=== PATIENT | female | born 1985 | race Caucasian/White ===

== ENCOUNTER 2016-10-09 09:47 | Emergency (ER) | payer OTHER ==
[2016-10-09 10:27] VITALS: BP 127/82; PULSE 80; RESP 20; TEMP 98; O2SAT 98
--- NOTE | 2016-10-09 14:03 | UCPHY ---
H & P Patient Type: Established Chief Complaint Nursing Narrative: pt reports abd pain with nausea and vomiting "for two years but worse over the past five days." pt states "I can't eat, I know it's my gallbladder and I want a HIDA Scan." MD in room with RN throughout triage and initial evaluation. Pt unwilling to cooperate with complete triage assessment. Time Seen by Provider: 10/09/16 09:54 HPI/ROS: Chief complaint: Nausea, diarrhea, palpitations HPI: 30-year-old female is presenting complaining of nausea and not able to keep anything down. Patient states that this has been going on for 2 years but has been worse the last week or so. Is also complaining some palpitations some subjective fevers or chills some nausea and vomiting and some occasional loose stools. Patient is a vague historian when I asked for clarification on how long her symptoms have been happening she asked me if I had not been listening. She states she has seen her physician for this and had multiple lab tests in the past. She is scheduled to see a product applications engineer in 3 days but does not want wait to the weekend. She is presenting now stating basically that she wants a HIDA scan performed. She is unable to really describe what is new today. Initially was very pleasant but has been when I been asking her questions and clarification of her symptoms became increasingly irritated. ROS: Patient is not answering all questions for review of systems and is acting somewhat annoyed and belligerent Past medical history: Chronic nausea and vomiting Medications: None Allergies: None Social history: Nonsmoker, denies alcohol, does states she uses daily marijuana Physical exam: Gen: Awake, Alert, initially smiling and pleasant and then became increasingly agitated HEENT: Nose: no rhinorrhea Eyes: PERRLA, EOMI Mouth: Moist mucosa Neck: Supple, no JVD Chest: nontender, lungs clear to auscultation Heart: S1, S2 normal, no murmur Abd: Soft, non-tender, no guarding Back: no CVA tenderness, no midline tenderness Ext: no edema, non-tender Skin: no rash Neuro: CN II-XII intact, Sensation grossly intact, Strength 5/5 in bilateral upper and lower extremities - Personal History LMP (Females 10-55): Unknown Current Tetanus/Diphtheria Vaccine: Unsure Current Tetanus Diphtheria and Acellular Pertussis (TDAP): Unsure - Medical/Surgical History Hx Asthma: No Hx Chronic Respiratory Disease: No Hx Diabetes: No Hx Cardiac Disease: No Hx Renal Disease: No Hx Cirrhosis: No Hx Alcoholism: No Hx HIV/AIDS: No Hx Splenectomy or Spleen Trauma: No Other PMH: anxiety. tonsilectomy - Family History Significant Family History: No pertinent family hx - Social History Smoking Status: Smoker current status UNK Constitutional: Initial Vital Signs Temperature (C) 36.6 C 10/09/16 09:52 Heart Rate 80 10/09/16 09:52 Respiratory Rate 20 10/09/16 09:52 Blood Pressure 127/82 H 10/09/16 09:52 O2 Sat (%) 98 10/09/16 09:52 O2 Delivery Mode Room Air Allergies/Adverse Reactions: No Known Allergies Allergy (Verified 10/09/16 11:08) Home Medications: Medication Instructions Recorded Hydrocodone/Acetaminophen [[place] 1 - 2 tab PO Q6H PRN #14 tab 10/09/16 5/325 (*)] Lexapro 10/09/16 Ondansetron Odt [Zofran Odt 4 mg 4 mg PO Q4 PRN #6 tab 10/09/16 (*)] Medical Decision Making ED Course/Re-evaluation: 30-year-old female presenting with a variety of complaints including abdominal pain nausea vomiting and some diarrhea. Is very difficult to ascertain a history as she was not answering my questions and I asked for clarification and she was not presenting her symptoms in a chronologic time line. When asked for clarification she became agitated and irritated and asked if I not been listening. I explained to her that I was having some difficulty ascertaining the development of her symptoms. I then examined the patient which revealed a soft nontender abdomen and no acute findings. After examining the patient I did discuss with her that I wanted to place an IV to give her some fluids some antiemetics and to check some blood work. I also discussed with her that her marijuana use although not necessarily the primary cause might be contributing to her symptoms. At this point she became increasingly agitated and told me that she felt that I did not like women and she requested a female provider. I explained to her that I was the only physician present. She then demanded to have a HIDA scan performed. I explained to her that as an urgent care we do not have a HIDA scan available to us at this time. I did continue to offer her typical IV medications IV fluids and laboratory evaluations. The patient then became angry stood up and grabbed her clothes walking of the urgent care with her gown on stating that if we would not help her and she would go elsewhere. I again explained to her that would be happy to give her any treatment of to treat her symptoms but she indicated refuses this by leaving the department. This entire patient interaction took place in the presence of the nurse, Kyung Costa. I was never alone with the patient. Departure - Departure Disposition: Against Medical Advice Clinical Impression: Nausea & vomiting Condition: Good Referrals: Ml Jose PA [Primary Care Provider] - As per Instructions - PQRS PQRS Measurement: NA
== END 2016-10-09 10:20 | disposition left against medical advice (07) ==
LOC: CED 09:47
DX: R11.2 Nausea with vomiting, unspecified (principal); F12.10 Cannabis abuse, uncomplicated

== ENCOUNTER 2016-10-09 11:03 | Emergency (ER) | payer OTHER ==
[2016-10-09] MEDS ORDERED: NS 1,000 ML IV ONE (11:13)
[2016-10-09] MEDS ORDERED: ONDANSETRON 4 MG/2 ML VIAL IVP ONE (11:13)
[2016-10-09 11:29] VITALS: O2SAT 97
[2016-10-09] MEDS ORDERED: HYDROmorphONE/DILAUDID 1 MG/ML SYR IVP ONE (11:44)
[2016-10-09 11:50] LABS: % IMMATURE GRANULYOCYTES 0.3 % (0.0-1.1); ABSOLUTE IMMATURE GRANULOCYTES 0.03 10^3/uL (0.00-0.10); ADD DIFF? NO; ADD MORPH? NO; ADD SCAN? NO; ATYPICAL LYMPHOCYTE FLAG 50 (0-99); FRAGMENT RBC FLAG 0 (0-99); HEMATOCRIT 40.2 % (38.0-47.0); HEMOGLOBIN 14.3 g/dL (12.6-16.3); LEFT SHIFT FLG 0 (0-99); LIPEMIA HEMOLYSIS FLAG 90 (0-99); MEAN CELL HEMOGLOBIN 29.9 pg (27.9-34.1); MEAN CELL HEMOGLOBIN CONCENTR. 35.6 g/dL (32.4-36.7); MEAN CELL VOLUME 83.9 fL (81.5-99.8); MEAN PLATELET VOLUME 9.9 fL (8.7-11.7); PLATELET CLUMPS FLAG 0 (0-99); PLATELET COUNT 202 10^3/uL (150-400); RED BLOOD CELL COUNT 4.79 10^6/uL (4.18-5.33); RED CELL DISTRIBUTION WIDTH 12.2 % (11.5-15.2)
--- NOTE | 2016-10-09 11:50 | EDPHY ---
H & P Stated Complaint: fever/epigastric pain nausea/v for 8 days(see note from [facility]) Time Seen by Provider: 10/09/16 11:45 HPI/ROS: HPI: 22-year-old female presents to emergency department with chief concern nausea, vomiting, fever, abdominal discomfort. Symptoms onset suddenly at 0 300 with sensation of her heart pounding in her chest associated with hot and cold spells, and emesis. Reports 5 to 8/10 sharp/stabbing pain in her upper epigastric and right upper quadrant, as well as 5/10 anterior chest pressure. Reports fever 101.8 6 days ago as well as burning urination in the past 5-6 days. Reports intermittent emesis x1 year. Denies dizziness, headache, chills , myalgias, shortness of breath, hematemesis, diarrhea, rash. Has a history of IBS. Has a history of anxiety for which she takes lorazepam. Family history significant for gallbladder disease. Primary care provider Dr. Shala Jose. 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 ROS:10 point review of systems is negative other than as stated in HPI Source: Patient Exam Limitations: No limitations - Personal History LMP (Females 10-55): 8-14 Days Ago Current Tetanus/Diphtheria Vaccine: Unsure - Medical/Surgical History Hx Asthma: No Hx Chronic Respiratory Disease: No Hx Diabetes: No Hx Cardiac Disease: No Hx Renal Disease: No Hx Cirrhosis: No Hx Alcoholism: No Hx HIV/AIDS: No Hx Splenectomy or Spleen Trauma: No Other PMH: anxiety. tonsilectomy - Family History Significant Family History: Other (Gallbladder disease, heart disease) - Social History Smoking Status: Never smoked Alcohol Use: Rarely Drug Use: Marijuana Additional Social History: [employer] engineering student - Physical Exam Exam: Vital signs stable, reviewed by me General: Awake, alert, calm, cooperative. No acute distress. Head: Normalocephalic. Atraumatic. EENT: PERRLA. EOMI. No pallor or injection. Anicteric. No nystagmus. No injection. TMs intact bilaterally with normal landmarks. No rhinnorhea, nasal passages clear. Oropharynx without redness, exudates, or lesions. Tonsils 2+ bilaterally, no exudates. Neck: Supple, nontender. No lymphadenopathy. Full range of motion. No meningismus. Respiratory: Breathing unlabored. Breath sounds equal bilaterally and clear to auscultation. No adventitious sounds. CV: Chest nontender, atraumatic. Heart rate regular. No murmur, distal pulses 2+ bilaterally. Brisk cap refill all extremities. GI: Abdomen soft, mid upper epigastric tenderness to deep palpation, right upper quadrant tenderness. No guarding. No rebound. Bowel sounds normoactive and positive x4 quadrants. No right lower quadrant tenderness. : No suprapubic tenderness. No CVA or flank tenderness. Neuro: Alert. Oriented x 3. Speech clear. Nonfocal cranial nerves throughout. Sensation intact all extremities. Skin: Skin warm, dry, intact. No rashes, abrasions, or lacerations. Skin turgor normal. Extremities: Full range of motion in all 4 extremities. Strength 5+ all extremities. Constitutional: Initial Vital Signs Temperature (C) 36.7 C 10/09/16 11:08 Heart Rate 77 10/09/16 11:08 Respiratory Rate 18 10/09/16 11:08 Blood Pressure 130/88 H 10/09/16 11:08 O2 Sat (%) 97 10/09/16 11:08 O2 Delivery Mode Room Air Allergies/Adverse Reactions: No Known Allergies Allergy (Verified 10/09/16 11:08) Home Medications: Medication Instructions Recorded Hydrocodone/Acetaminophen [[place] 1 - 2 tab PO Q6H PRN #14 tab 10/09/16 5/325 (*)] Lexapro 10/09/16 Ondansetron Odt [Zofran Odt 4 mg 4 mg PO Q4 PRN #6 tab 10/09/16 (*)] Medical Decision Making - Diagnostics Imaging: Ultrasound of the Abdomen Limited History: RUQ abdominal Pain Comparison: None. Findings: Gallbladder: No shadowing calculi, wall thickening, or pericholecystic fluid. Common bile duct is 3 mm in diameter which is normal. Liver: Homogeneous in echogenicity without definite focal solid lesions and measures 18 cm in length. Main portal vein is patent. Renal: Right kidney measures 10 x 6 x 4 cm without hydronephrosis. Pancreas: Homogeneous without peripancreatic fluid. Aorta: Visualized upper abdominal aorta demonstrates no aneurysm. Impression: No cholelithiasis or biliary ductal dilation. Findings and recommendations discussed with Emergency Department physician, Bethany Bernal NP at 12:55 hour, 10/09/2016. Final report concurs with initial preliminary interpretation. Dictated By: Negro Logan ED Course/Re-evaluation: 1145:30-year-old female presents to ED with complaints of chest pain, heart pounding, epigastric, right upper quadrant pain, nausea and vomiting. IV started. Urinalysis ordered. Labs obtained. She has positive right upper quadrant tenderness and a significant family history for cholecystitis so right upper quadrant ultrasound ordered. Patient given 0.5 mg IV Dilaudid, as well as 4 mg Zofran. 1 L normal saline hung. 1325: The EKG shows sinus David rate 52, normal intervals, no evidence of acute ischemia. White count 9430 with 79.1% neutrophils. CO2 21. Glucose 108. AST 57. ALT 66. Urinalysis shows 1+ blood, trace esterase, no elevation in WBCs. Urine culture has been ordered and is pending. She no longer has urinary burning and so we will wait for culture before deciding on treatment. Ultrasound negative for evidence of gallstones. There is no aneurysm, fluid, or hydro. Patient has a follow-up appointment with her travel accommodation inspector Wednesday at 2:45 p.m.. She will keep this appointment. She understands to return to emergency department should symptoms worsen in any way. At this time , her pain has decreased to 3 to 4/10 after 20 IV Pepcid, GI cocktail, and the 0.5 IV Dilaudid. She will be discharged with a short-term script for [place] as well as Zofran. HCG negative. Differential Diagnosis: Differential diagnosis includes but is not limited to anxiety, cholecystitis, dyspepsia/GERD, IBS - Data Points Laboratory Results: Laboratory Results 10/09/16 11:30 10/09/16 11:30 10/09/16 10/09/16 10/09/16 13:00 11:30 11:30 WBC RBC Hgb Hct MCV MCH MCHC RDW Plt Count MPV Neut % (Auto) Lymph % (Auto) [place] % (Auto) Eos % (Auto) Baso % (Auto) Nucleat RBC Rel Count Absolute Neuts (auto) Absolute Lymphs (auto) Absolute Monos (auto) Absolute Eos (auto) Absolute Basos (auto) Absolute Nucleated RBC Immature Gran % Immature Gran # Sodium 141 mEq/L mEq/L (134-144) Potassium 3.7 mEq/L mEq/L (3.5-5.2) Chloride 106 mEq/L mEq/L (97-110) Carbon Dioxide 21 mEq/l L mEq/l (22-31) Anion Gap 14 mEq/L mEq/L (8-16) BUN 9 mg/dL mg/dL (7-23) Creatinine 0.7 mg/dL mg/dL (0.6-1.0) Estimated GFR > 60 Glucose 108 mg/dL H mg/dL (70-100) Calcium 9.0 mg/dL mg/dL (8.5-10.4) Total Bilirubin 0.8 mg/dL mg/dL (0.1-1.4) Conjugated Bilirubin 0.4 mg/dL mg/dL (0.0-0.5) Unconjugated Bilirubin 0.4 mg/dL mg/dL (0.0-1.1) AST 57 IU/L H IU/L (14-46) ALT 66 IU/L H IU/L (9-52) Alkaline Phosphatase 68 IU/L IU/L (38-126) Total Protein 7.7 g/dL g/dL (6.3-8.2) Albumin 4.6 g/dL g/dL (3.5-5.0) Beta HCG, Qual NEGATIVE Urine Color YELLOW Urine Appearance CLEAR Urine pH 8.0 H (5.0-7.5) Ur Specific [place] 1.010 (1.002-1.030) Urine Protein NEGATIVE (NEGATIVE) Urine Ketones 1+ H (NEGATIVE) Urine Blood 1+ H (NEGATIVE) Urine Nitrate NEGATIVE (NEGATIVE) Urine Bilirubin NEGATIVE (NEGATIVE) Urine Urobilinogen NEGATIVE EU EU (0.2-1.0) Ur Leukocyte Esterase TRACE H (NEGATIVE) Urine RBC 1-3 /hpf /hpf (0-3) Urine WBC 1-3 /hpf /hpf (0-3) Ur Epithelial Cells TRACE /lpf /lpf (NONE-1+) Urine Bacteria NONE SEEN /hpf /hpf (NONE SEEN) Urine Mucus TRACE /lpf /lpf (NONE-1+) Urine Glucose NEGATIVE (NEGATIVE) 10/09/16 11:30 WBC 9.43 10^3/uL 10^3/uL (3.80-9.50) RBC 4.79 10^6/uL 10^6/uL (4.18-5.33) Hgb 14.3 g/dL g/dL (12.6-16.3) Hct 40.2 % % (38.0-47.0) MCV 83.9 fL fL (81.5-99.8) MCH 29.9 pg pg (27.9-34.1) MCHC 35.6 g/dL g/dL (32.4-36.7) RDW 12.2 % % (11.5-15.2) Plt Count 202 10^3/uL 10^3/uL (150-400) MPV 9.9 fL fL (8.7-11.7) Neut % (Auto) 79.1 % H % (39.3-74.2) Lymph % (Auto) 15.4 % % (15.0-45.0) [place] % (Auto) 4.8 % % (4.5-13.0) Eos % (Auto) 0.3 % L % (0.6-7.6) Baso % (Auto) 0.1 % L % (0.3-1.7) Nucleat RBC Rel Count 0.0 % % (0.0-0.2) Absolute Neuts (auto) 7.46 10^3/uL H 10^3/uL (1.70-6.50) Absolute Lymphs (auto) 1.45 10^3/uL 10^3/uL (1.00-3.00) Absolute Monos (auto) 0.45 10^3/uL 10^3/uL (0.30-0.80) Absolute Eos (auto) 0.03 10^3/uL 10^3/uL (0.03-0.40) Absolute Basos (auto) 0.01 10^3/uL L 10^3/uL (0.02-0.10) Absolute Nucleated RBC 0.00 10^3/uL 10^3/uL (0-0.01) Immature Gran % 0.3 % % (0.0-1.1) Immature Gran # 0.03 10^3/uL 10^3/uL (0.00-0.10) Sodium Potassium Chloride Carbon Dioxide Anion Gap BUN Creatinine Estimated GFR Glucose Calcium Total Bilirubin Conjugated Bilirubin Unconjugated Bilirubin AST ALT Alkaline Phosphatase Total Protein Albumin Beta HCG, Qual Urine Color Urine Appearance Urine pH Ur Specific [place] Urine Protein Urine Ketones Urine Blood Urine Nitrate Urine Bilirubin Urine Urobilinogen Ur Leukocyte Esterase Urine RBC Urine WBC Ur Epithelial Cells Urine Bacteria Urine Mucus Urine Glucose Medications Given: Discontinued Medications Al Hydroxide/Mg Hydroxide (Maalox Susp) 30 ml PO ONCE ONE Stop: 10/09/16 12:00 Last Admin: 10/09/16 12:39 Dose: 30 ml Famotidine (Pepcid) 20 mg IVP EDNOW ONE Stop: 10/09/16 11:59 Last Admin: 10/09/16 12:38 Dose: 20 mg Hydromorphone HCl (Dilaudid) 0.5 mg IVP EDNOW ONE Stop: 10/09/16 11:45 Last Admin: 10/09/16 12:02 Dose: 0.5 mg Hyoscyamine Sulfate (Levsin, Hyomax-Sl) 0.25 mg PO ONCE ONE Stop: 10/09/16 12:00 Last Admin: 10/09/16 12:39 Dose: 0.25 mg Sodium Chloride (Ns) 1,000 mls @ 0 mls/hr IV ONCE ONE PRN Reason: Wide Open Stop: 10/09/16 11:14 Last Admin: 10/09/16 11:34 Dose: 1,000 mls Lidocaine (Lidocaine 2% Viscous) 15 ml PO ONCE ONE Stop: 10/09/16 12:00 Last Admin: 10/09/16 12:39 Dose: 15 ml Ondansetron HCl (Zofran) 4 mg IVP EDNOW ONE Stop: 10/09/16 11:14 Last Admin: 10/09/16 11:34 Dose: 4 mg Departure - Departure Disposition: Home, Routine, Self-Care Clinical Impression: Abdominal pain, Chest pain, Nausea & vomiting Condition: Good Instructions: Chest Pain (ED), Acute Nausea and Vomiting (ED), Acute Abdominal Pain (ED) Additional Instructions: Plan: Keep your appointment with a travel accommodation inspector Wednesday May use 1 to 2 [place] every 6 hours for severe pain--Never drink or drive while taking this medication. This medication impairs decision making capacity so do not work or sign important documents while taking. This medication its constipating so drink plenty of fluids and consider an [id number] stool softener such as docusate sodium (Colace) while taking this medication. This medication has addictive properties. You should use the least amount for the shortest amount of time. [facility] do not refill narcotic pain medication prescriptions. This is a hospital policy. You will need to follow up as indicated for recheck for further narcotic refills. Zofran 1 tablet every 4-6 hours as needed for severe nausea For worsening pain or unremitting vomiting return for recheck Referrals: Ml Jose PA [Primary Care Provider] - As per Instructions Prescriptions: Hydrocodone/Acetaminophen [[place] 5/325 (*)] 1 - 2 tab PO Q6H PRN #14 tab PRN Reason: Pain, Moderate Ondansetron Odt [Zofran Odt 4 mg (*)] 4 mg PO Q4 PRN #6 tab PRN Reason: Severe nausea
[2016-10-09] MEDS ORDERED: FAMOTIDINE 20 MG/2 ML SDV IVP ONE (11:58)
--- NOTE | 2016-10-09 11:58 | CPEKG ---
Heart Rate: 52 RR Interval: 1154 P-R Interval: 168 QRSD Interval: 88 QT Interval: 404 QTC Interval: 376 P [place]: 44 QRS [place]: 91 T Wave [place]: 63 EKG Severity - OTHERWISE NORMAL ECG - EKG Impression: SINUS RHYTHM EKG Impression: BORDERLINE RIGHT AXIS DEVIATION Electronically Signed By: Jude Murillo 09-Oct-2016 14:55:34
[2016-10-09] MEDS ORDERED: MAG HYDROX/AL HYDROX/SIMETH 30 ML UDCUP PO ONE (11:59)
[2016-10-09] MEDS ORDERED: LIDOCAINE 2% VISCOUS 15 ML UDCUP PO ONE (11:59)
[2016-10-09] MEDS ORDERED: HYOSCYAMINE SULFATE 0.125 MG TAB PO ONE (11:59)
[2016-10-09 12:18] LABS: ALANINE AMINOTRANSFERASE 66 IU/L (9-52); ALBUMIN 4.6 g/dL (3.5-5.0); ALKALINE PHOSPHATASE 68 IU/L (38-126); ANION GAP 14 mEq/L (8-16); ASPARTATE AMINOTRANSFERASE 57 IU/L (14-46); BILIRUBIN,TOTAL 0.8 mg/dL (0.1-1.4); BILIRUBIN-CONJUGATED 0.4 mg/dL (0.0-0.5); BILIRUBIN-UNCONJUGATED 0.4 mg/dL (0.0-1.1); CARBON DIOXIDE 21 mEq/l (22-31); CHLORIDE 106 mEq/L (97-110); CREATININE 0.7 mg/dL (0.6-1.0); GLOMERULAR FILTRATION RATE > 60; GLUCOSE 108 mg/dL (70-100); POTASSIUM 3.7 mEq/L (3.5-5.2); SODIUM 141 mEq/L (134-144); TOTAL PROTEIN 7.7 g/dL (6.3-8.2)
[2016-10-09 13:12] LABS: COLOR YELLOW; LEUKOCYTE ESTERASE,URINE TRACE (NEGATIVE); NITRITE,URINE NEGATIVE (NEGATIVE)
[2016-10-09 13:17] LABS: BACTERIA NONE SEEN /hpf (NONE SEEN); MUCUS TRACE /lpf (NONE-1+)
[2016-10-09 13:51] VITALS: BP 116/82; PULSE 67; RESP 16; TEMP 98.4
== END 2016-10-09 13:49 | disposition home or self-care (01) ==
DX: R10.13 Epigastric pain (principal); R07.9 Chest pain, unspecified; R11.2 Nausea with vomiting, unspecified
CPT/HCPCS: 96374; J1170; J2405

== ENCOUNTER → 2017-08-03 | Outpatient (CLI) | payer OTHER | LOC: FIMAGING 08:19 | PROVIDERS: ATTEND Internal Medicine Gastroenterology | DX: R11.0 Nausea (principal) | CPT/HCPCS: 78227; A9537 ==